=== PATIENT | male | born 1995 ===

== ENCOUNTER 2024-02-20 12:19 | Emergency (ER) | payer SELFPAY ==
[2024-02-20] MEDS: Bacitracin Oint 1 GM U/D Packet TOP ONE (13:20)
[2024-02-20] MEDS: Lidocaine 1% 5 ML VIAL INJECT ONE (13:20)
[2024-02-20] MEDS: Diphtheria,Pertussis(Acell),Tetanus Vaccine 0.5 ML Syringe IM ONE (13:24)
== END 2024-02-20 14:10 | disposition home or self-care (01) ==
LOC: LL.ED 12:19
DX: S61.412A Laceration without foreign body of left hand, initial encounter (principal); Z23 Encounter for immunization; W26.8XXA Contact with other sharp object(s), not elsewhere classified, initial encounter
CPT/HCPCS: 12002; 90471; 90715; 99282-25; 99283; J3490